=== PATIENT | female | born 1945 | race Caucasian/White ===

== ENCOUNTER 2018-01-01 11:06 | Outpatient (CLI) | payer MEDICARE, MEDICAID | END 2018-01-01 20:13 | disposition home or self-care (01) | LOC: SMA 11:06 | PROVIDERS: ATTEND Family Medicine | DX: Z12.31 Encounter for screening mammogram for malignant neoplasm of breast (principal) | CPT/HCPCS: 77067 ==

== ENCOUNTER 2019-10-03 10:19 | Outpatient (CLI) | payer MEDICARE, MEDICAID | END 2019-10-03 21:10 | disposition home or self-care (01) | LOC: SMA 10:19 | PROVIDERS: ATTEND Family Medicine | DX: Z12.31 Encounter for screening mammogram for malignant neoplasm of breast (principal); N64.89 Other specified disorders of breast | CPT/HCPCS: 77067 ==